=== PATIENT | female | born 1990 | race Hispanic/Latino ===

== ENCOUNTER 2017-01-23 16:22 | Emergency (ER) | payer OTHER ==
[~2017-01-23] VITALS: Ht 157.5 cm; Wt 72.6 kg
[2017-01-23 16:23] VITALS: BP 129/81
[2017-01-23 19:10] LABS: BASO % 0.3 % (0.0-1.0); EOS # 0.2 K/mm3 (0.0-0.50); EOS % 1.4 % (0.0-3.0); LARGE UNSTAINED CELL # 0.2 K/mm3 (0.0-0.4); LARGE UNSTAINED CELL % 1.5 % (0.0-4.0); LYMPH # 3.4 K/mm3 (1.5-6.5); LYMPH % 28.4 % (24.0-44.0); MEAN CORPUSCULAR HEMOGLOBIN 29.6 pg (27.0-33.0); MEAN CORPUSCULAR HGB CONC 33.5 g/dl (32.0-36.5); MEAN CORPUSCULAR VOLUME 88.3 fl (80.0-96.0); MONO # 0.4 K/mm3 (0.0-0.8); MONO % 3.3 % (0.0-5.0); NEUTROPHILS # 7.7 K/mm3 (1.8-7.7); NEUTROPHILS % 65.2 % (36.0-66.0); PLATELET COUNT, AUTOMATED 282 k/mm3 (150-450); RED CELL DISTRIBUTION WIDTH 12.8 % (11.5-14.5); WHITE BLOOD COUNT 11.9 K/mm3 (4.0-10.0)
[2017-01-23 19:18] LABS: CONTROL LINE HCG INT CTR LINE PRESENT
[2017-01-23 19:26] LABS: ALBUMIN/GLOBULIN RATIO 1.08 (1.00-1.93); ALKALINE PHOSPHATASE 56 U/L (45-117); ALT/SGPT 34 U/L (12-78); ANION GAP 8 MEQ/L (8-16); AST/SGOT 4 U/L (15-37); BILIRUBIN,DIRECT < 0.1 MG/DL (0.0-0.2); BILIRUBIN,TOTAL 0.3 MG/DL (0.2-1.0); BLOOD UREA NITROGEN 14 MG/DL (7-18); CALCIUM LEVEL 8.9 MG/DL (8.5-10.1); CARBON DIOXIDE LEVEL 27 MEQ/L (21-32); CHLORIDE LEVEL 106 MEQ/L (98-107); CREATININE FOR GFR 0.78 MG/DL (0.55-1.02); GLOMERULAR FILTRATION RATE > 60.0 (>60); GLUCOSE, FASTING 86 MG/DL (70-105); POTASSIUM SERUM 3.9 MEQ/L (3.5-5.1); SODIUM LEVEL 141 MEQ/L (136-145); TOTAL PROTEIN 7.7 GM/DL (6.4-8.2)
--- NOTE | 2017-01-23 20:30 | REPUSA ---
Clinical history: Pain. Findings: Real-time transabdominal and transvaginal ultrasound images of the pelvis were obtained. An anteverted uterus is noted, measuring 8.7 x 4.9 x 5.6 cm. The uterus demonstrates normal echotexture and echogenicity. The endometrial stripe appear slightly thickened. Now intrauterine is n oted. The right ovary measures 4.5 x 2.4 x 2.0 cm. The left ovary measures 3.7 x 1.4 x 2.3 cm. No a dnexal masses are seen. Color Doppler flow is seen within both ovaries. There is no evidence of free fluid. Impression: No evidence of a intrauterine gestational sac. Differential diagnosis includes early preg prudence, missed , or ectopic . Follow-up with serial serum beta hCG levels is recomme nded for further evaluation.
[2017-01-23 20:33] LABS: HCG, SERUM QUANTITATIVE 35 MIU/ML
== END 2017-01-23 21:14 | disposition home or self-care (01) ==
LOC: M ED 16:51
DX: O99.89 Other specified diseases and conditions complicating pregnancy, childbirth and the puerperium (principal); R10.2 Pelvic and perineal pain; Z3A.00 Weeks of gestation of pregnancy not specified

== ENCOUNTER → 2017-06-21 | Outpatient (CLI) | payer OTHER ==
--- NOTE | 2017-06-21 22:54 | ECGEPIP ---
Stationary ECG Study [facility] Test Date: 2017-06-21 Pat Name: JOHN COLMENARES Department: Room: - Gender: F [employer]: ERIBERTO : 1990 Requested By: TOM Reyez Order Number: [id number] Reading MD: Juan Machado Measurements Intervals [place]ma Rate: 78 P: 52 TN: 150 QRS: 48 QRSD: 96 T: 18 QT: 378 QTc: 432 Interpretive Statements SINUS RHYTHM WITH MARKED SINUS ARRHYTHMIA Otherwise within normal limits. No prior ECG available for comparison at the time of interpretation. Electronically Signed On 06-21-2017 22:54:09 EDT by Juan Machado
== END ==
LOC: M LAB 16:32
PROVIDERS: ATTEND Obstetrics & Gynecology
DX: E11.9 Type 2 diabetes mellitus without complications (principal)